=== PATIENT | female | born 1965 | race Caucasian/White ===

== ENCOUNTER 2016-12-05 13:31 | Inpatient (IN) | payer OTHER ==
[~2016-12-05] VITALS: Ht 172.7 cm; Wt 99.8 kg
--- NOTE | ~2016-12-05 | CO ---
Unit #: [id number] #: [id number] Patient: LEROY GORDILLO [id number] [address] [place], [place] [address] [id number] I MR#: [id number] NAME: LEROY GORDILLO. ROOM: 39300 Age: 51 Sex: F Admission Date: 12/05/2016 : 1965 Attending Physician: Chery Dejesus M.D. Primary Care Physician: Primary Care Physician No Consultation Date: 12/06/2016 CONSULTATION REPORT REASON FOR CONSULTATION Respiratory failure and COPD. HISTORY OF PRESENT ILLNESS A 51-year-old female, who has no medical history, on no medicines at home. Presents with shortness of breath. She currently has some shortness of breath, particularly during the hot months, but over the last one week, it worsened. She had wheezing, minimal sputum production. No hemoptysis, no chest pain, and no fever. In the emergency room, she was found to have hypercapnic hypoxemic respiratory failure. There was a question of congestive heart failure. She was treated with Lasix, Solu-Medrol, aspirin, and nebulized bronchodilators. Repeat blood gas was ordered, but she refused. Today, she feels somewhat better, but certainly was very short of breath, and she says "it scared me." Of note, CT PE protocol was negative. PAST MEDICAL HISTORY No medical problems. MEDICATIONS At home, none. ALLERGIES No known medical allergies. SOCIAL HISTORY She lives with her . She does not work. She used to work at [employer]. She denies any occupational exposures. She smokes a pack of cigarettes a day, some marijuana. Denies alcohol. FAMILY HISTORY Mother having lung cancer. REVIEW OF SYSTEMS No chest pain, palpitations, abdominal pain, melena, hematuria, dysuria, focal weakness, paresthesias, leg pain, swelling, documented fever, or chills. She does snore. She will wake up gasping and snoring. She does have daytime sleepiness and fatigue. She has had some mid back discomfort, which is made worse with palpation and improved with massage. PHYSICAL EXAMINATION GENERAL: Reveals a patient, who is in no acute distress, on the nasal cannula oxygen. VITAL SIGNS: Afebrile, pulse 84, respiratory rate is 20, blood pressure Unit #: [id number] #: [id number] Patient: LEROY GORDILLO 155/105, 5 feet 8 inches, 229 pounds, BMI is 34. HEENT: Pupils equal, round, and reactive to light. Sclerae anicteric. Head atraumatic. NECK: Supple. No supraclavicular or cervical adenopathy appreciated. Mucous membranes are moist. Mallampati class IV oropharynx. Dentition is poor. CHEST: Inspiratory squeaks, expiratory wheeze. Prolonged expiratory phase. Crackles at the bases. CARDIAC: Reveals distant heart tones. Regular rate and rhythm. No pathologic murmur, rub, or gallop. ABDOMEN: Soft and nontender. No hepatomegaly or rebound. EXTREMITIES: Reveal no clubbing or cyanosis. No significant edema. Calves are nontender. NEUROLOGIC: Grossly intact. No focal motor or sensory deficits. SKIN: Dry and warm. DIAGNOSTIC STUDIES LABORATORY RESULTS: Arterial blood gas; pH is 7.32, pCO2 of 56, pO2 of 46 on 4 L. Most recent pH is 7.31, pCO2 of 58, pO2 of 88, that was on mask ventilation. She currently only is on nasal cannula oxygen. Again, she refused repeat blood gas. BUN 22, creatinine 0.9. BNP 803. TSH is mildly low at 0.32. Cardiac enzymes negative. White blood cell count 8.8, hemoglobin 14.6, hematocrit is mildly elevated. Tox screen canceled. Urinalysis cancelled. I believe she left the ER against medical advice, but then came back. Urine culture canceled. IMAGING STUDIES: Chest x-ray fairly unremarkable. CT scan, some tree-in-bud abnormalities in right upper lobe, possible mild emphysematous changes, no lobar pneumonia, no PE. EKG; sinus tachycardia. IMPRESSION 1. Acute hypercapnic hypoxemic respiratory failure. 2. Chronic obstructive pulmonary disease, suspect some degree of bronchiolitis. 3. Likely obstructive sleep apnea, possible obesity hypoventilation syndrome. 4. Ongoing active tobacco use. 5. Possible congestive heart failure. PLAN Maximize pulmonary status with steroids, antibiotics, and nebulized bronchodilators. No smoking is a great need and this was discussed in detail. Room air oxygenation needs will be checked at discharge. Outpatient PFTs as well as nocturnal polysomnography. I have discussed the pathophysiology of sleep apnea including diagnostic process, therapeutic options including CPAP, she seems interested. Follow up echocardiogram. Thank you very much for allowing me to participate in the care of Ms. Gordillo. Dictated by... Gena Valencia/yfn TD: 12/07/2016 01:19 Unit #: [id number] #: [id number] Patient: LEROY GORDILLO JOB #: [id number] CONSULTATION REPORT Page 1 of 1 X Jeff Joyce MD CONSULTATION REPORT
--- NOTE | ~2016-12-05 | HP ---
Unit #: [id number] #: [id number] Patient: LEROY GORDILLO [id number] [address] [place], [place] [address] [id number] I MR#: [id number] NAME: LEROY GORDILLO ROOM: 47058 Age: 51 Sex: F Admission Date: 12/05/2016 : 1965 Attending Physician: Chery Dejesus M.D. HISTORY AND PHYSICAL CHIEF COMPLAINT Short of air. HISTORY OF PRESENT ILLNESS The patient is a 51-year-old female with no significant past medical history who presented to the emergency department for evaluation of the above. The patient states that she has had a three-day history of increasing shortness of breath and intermittently productive cough. She states that she has had chills and undocumented fever. She also reports chest pain as recently as yesterday. It is in the mid chest. She describes it as "pressure." She denies current chest pain. She has had paroxysmal nocturnal dyspnea, as well as dyspnea on exertion when walking across the room. She has had increasing lower extremity swelling. She denies any change in her weight. She denies orthopnea. She reports intermittent abdominal pain but none now. She has had three bouts of nonbloody emesis within the past 24 hours. She denies any diarrhea. Upon arrival in the emergency department, initial oxygen saturation was 76% on room air, pulse 109, respirations 22, blood pressure 136/94. Chest x-ray shows mild cardiac enlargement. BNP is 803. Initial arterial blood gas showed a pH of 7.327, PCO2 of 55.7, and PO2 of 46.7 on four liters. She is currently on BiPAP. She received Lasix 40 mg IV daily in the emergency department, as well as 324 mg of aspirin and 125 mg of Solu-Medrol. She is being admitted to [facility] for evaluation and further treatment. PAST MEDICAL HISTORY The patient denies hospitalizations. PAST SURGICAL HISTORY Surgery for ectopic . SOCIAL HISTORY The patient lives with her . She smokes a pack of cigarettes daily. She reports marijuana use. She denies alcohol use. FAMILY HISTORY Notable for her mother having lung cancer. Her dad had a pacemaker. ALLERGIES No known allergies. Unit #: [id number] #: [id number] Patient: LEROY GORDILLO HOME MEDICATIONS None. REVIEW OF SYSTEMS A complete review of systems is negative except as indicated in the HPI. The patient denies ever having a stress test and no cardiac catheterization. PHYSICAL EXAMINATION VITAL SIGNS: Temperature is 98, pulse 109, respirations 22, blood pressure 136/94, oxygen saturation 76% on room air. GENERAL: The patient is a female who is awake and alert on BiPAP. HEENT: Head is atraumatic. Mucous membranes are moist. NECK: Supple. Trachea is midline. CARDIOVASCULAR: Regular rate and rhythm. LUNGS: Scattered wheezes and crackles. Breathing is mildly labored. She is currently on BiPAP. ABDOMEN: Soft and nontender with bowel sounds present in all four quadrants. EXTREMITIES: With 1 to 2+ edema. NEUROLOGIC: The patient is awake and alert. She is oriented x3. She is moving all extremities. PSYCHIATRIC: Mood and affect are normal. Patient is cooperative. SKIN: Skin of examined areas is warm and dry. DIAGNOSTIC STUDIES LABORATORY: Arterial blood gas shows a pH of 7.327, PCO2 of 55.7, and PO2 of 46.7, on four liters. Complete blood count is essentially normal. Troponin is less than 0.05. Comprehensive metabolic panel notable for a glucose of 132, BUN and creatinine 28 and 1, respectively, albumin is 3.3. BNP is 803. IMAGING: Chest x-ray shows mild cardiac enlargement. CARDIOLOGY: EKG shows sinus tachycardia with a rate of 104 beats per minute. ASSESSMENT The patient is a 51-year-old female with: 1. Acute respiratory failure, hypoxic and hypercapnic. 2. New congestive heart failure. The patient received 40 mg of Lasix IV in the emergency department. 3. Likely chronic obstructive pulmonary disease with continued tobacco abuse. The patient received 125 mg of Solu-Medrol in the emergency department. 4. Chest pain. The patient has never had a stress test and never had a cardiac catheterization. PHYSICAL EXAMINATION 1. Admit to ICU. 2. N.p.o. except medications. 3. Bedrest. 4. Fall precautions. 5. Continue BiPAP at current settings (14/6 with an FIO2 of 50%). 6. Consult Chest Medicine regarding acute respiratory failure. 7. DuoNebs q.4 hours. 8. Solu-Medrol 80 mg IV q.12 hours. Unit #: [id number] #: [id number] Patient: LEROY GORDILLO 9. Mucinex [address] b.i.d. 10. CT of the chest, PE protocol. 11. Repeat ABG later this evening. 12. A 2D echo. 13. Strict I/Os. 14. Daily weights. 15. Serial cardiac enzymes. 16. Consult Dr. Vega regarding CHF. He has seen the patient and agrees to see her in consultation. 17. Fasting lipid panel. 18. TSH. 19. P.r.n. Zofran. 20. Protonix for GI prophylaxis since the patient will be on Solu-Medrol. 21. Urinalysis with culture and sensitivity. 22. Urine tox screen. 23. Repeat labs in the morning. 24. Additional workup and consultants based on above. Thirty-five (35) minutes critical care time spent in the care of this patient (4 o'clock to 4:35 p.m.). Dictated by Gena Galindo/barrera TD: 12/05/2016 19:31 JOB #: [id number] HISTORY AND PHYSICAL Page 1 of 1 X Chery Dejesus MD X HISTORY AND PHYSICAL
--- NOTE | ~2016-12-05 | EKG ---
PATIENT: LEROY GORDILLO UNIT #: [id number] Ventricular Rate: 104 BPM Atrial Rate: 104 BPM P-R Interval: 126 ms QRS Duration: 98 ms Q-T Interval: 352 ms QTC Calculation(Bezet): 462 ms P Eleanor: 47 degrees Calculated R Eleanor: -76 degrees Calculated T Eleanor: 48 degrees Diagnosis Line: Sinus tachycardia Diagnosis Line: Possible Left atrial enlargement Diagnosis Line: Incomplete right bundle branch block Diagnosis Line: Left anterior fascicular block Diagnosis Line: Cannot rule out Inferior infarct (masked by Diagnosis Line: fascicular block?) , age undetermined Diagnosis Line: Anterolateral infarct , age undetermined Diagnosis Line: Abnormal ECG Diagnosis Line: No previous ECGs available Diagnosis Line: Confirmed by SAM DESAI MD ([id number]) on Diagnosis Line: 12/06/2016 8:04:05 AM INTERPRETING MD: GISELLE MCELROY
--- NOTE | ~2016-12-05 | CO ---
Unit #: [id number] #: [id number] Patient: LEROY GORDILLO [id number] [address] [address] [id number] I MR#: [id number] NAME: LEROY GORDILLO. ROOM: 36683 Age: 51 Sex: F Admission Date: 12/05/2016 : 1965 Attending Physician: Chery Dejesus M.D. Primary Care Physician: Primary Care Physician No CONSULTATION REPORT REASON FOR CONSULTATION Shortness of air, possible CHF. HISTORY OF PRESENT ILLNESS The patient is a 51-year-old, female, who smokes one pack daily and has not followed with a physician in over 30 years, who presented to the emergency room with complaints of shortness of breath. She reports that she has had progressive shortness of breath and lower extremity swelling over the past several days. No reports of chest pain. The patient was noted to have O2 saturations in the 73 on room air in the triage room and was brought into the ER and had ABG drawn, which was abnormal showing a PO2 of 46 and was subsequently placed on BiPAP. PAST MEDICAL HISTORY 1. Probable untreated hypertension. 2. Possible obstructive sleep apnea. 3. Tobacco use. HOME MEDICATIONS None. ALLERGIES No known drug allergies. SOCIAL HISTORY She smokes one pack daily. FAMILY HISTORY Negative. REVIEW OF SYSTEMS Swelling and progressive shortness of air as discussed in the HPI. DIAGNOSTIC STUDIES LABORATORY RESULTS: Current labs and tests; ABG pH: 7.313, pCO2 of 58.3, PO2 of 88.6, and O2 saturation 81.7 (this is after patient has been placed on BiPAP) BNP is 803. Sodium 138, potassium 4.3, chloride 102, CO2 of 29, glucose 132, BUN 28, and creatinine 1.0. AST 26, ALT 30. Troponin less than 0.05 at 1431 hours. White blood cell 10.5, hemoglobin 15.2, hematocrit 46.7, and platelets are 261. PHYSICAL EXAMINATION VITAL SIGNS: Blood pressure 130/81, heart rate 91 and regular, Unit #: [id number] #: [id number] Patient: LEROY GORDILLO respirations 22 and regular, and O2 saturation 95% on BiPAP. GENERAL: The patient is well-developed, well-nourished, obese female, mild respiratory distress. HEENT: Head is normocephalic and atraumatic. There are no xanthelasmas. Oral mucosa is pink and moist. NECK: No JVD or carotid bruits. SPINE: No scoliosis. CARDIAC: Regular rate and rhythm without murmur, gallop, rub, or lift appreciated. PULMONARY: Decreased breath sounds bilaterally. No wheezes, rhonchi, or rales appreciated. ABDOMEN: Soft, nontender, and nondistended. Positive bowel sounds x4. The abdominal pulsation is not enlarged. EXTREMITIES: No clubbing or cyanosis. There is trace to 1+ edema. ASSESSMENT AND PLAN 1. Shortness of air, which may be multifactorial. 2. Acute hypoxic respiratory failure. 3. Tobacco use. 4. Obesity. 5. Probable obstructive sleep apnea. Ms. Gordillo's case was discussed with Dr. Vega, who has evaluated the patient. We will start Lasix 40 mg IV b.i.d. and check a 2D echo Doppler and also get a TSH in the morning. Dictated by... Carla Castaneda P.A.C. for S. Jesus Vega M.D. CMG/yfn TD: 12/06/2016 03:59 JOB #: [id number] CONSULTATION REPORT Page 1 of 1 X X CONSULTATION REPORT
--- NOTE | ~2016-12-05 | CR72 ---
[facility] A Service of [facility] RADIOLOGY TEXT RESULTS PATIENT: LEROY GORDILLO LOCATION: [facility] : [birth year] UNIT #: [id number] AGE: [address]: Chery Dejesus MD SEX: F ORDER DR: [id number] [facility] [address] [facility]. [place], [place] [address] [id number] I MR#: [id number] Acc #: [id number] NAME: LEROY GORDILLO. : 1965 SEX: F STUDY DATE/TIME: 12/05/2016 14:40 UNIT: [facility]OF ROOM: 57240 STUDY DESCRIPTION: CR Chest Single View Portable Attending Physician: Chery Dejesus M.D. Ordering Physician: Darren Gaming M.D. Primary Care Physician: Primary Care Physician No MEDICAL IMAGING REPORT This report is preliminary unless electronic signature is present EXAM Portable chest HISTORY Shortness of air for 3 days. FINDINGS Moderate cardiac enlargement. Pulmonary vascularity is normal. No airspace infiltrates or effusions. IMPRESSION No acute findings. Mild cardiac enlargement. Dictated by... Bassam Carlson M.D. THIS IS AN ELECTRONICALLY VERIFIED REPORT Bassam Carlson M.D. at 12/06/2016 3:26 PM DFL/psc TD: 12/06/2016 09:50 JOB #: [id number] MEDICAL IMAGING REPORT Page 1 of 1 COPY
--- NOTE | ~2016-12-05 | CT16 ---
[facility] A Service of [facility] RADIOLOGY TEXT RESULTS PATIENT: LEROY GORDILLO LOCATION: [facility] [id number] : [birth year] UNIT #: [id number] AGE: [address]: Chery Dejesus MD SEX: F ORDER DR: [id number] [facility] [address] [facility]. [place], [place] [address] [id number] I MR#: [id number] Acc #: [id number] NAME: LEROY GORDILLO. : 1965 SEX: F STUDY DATE/TIME: 12/05/2016 18:23 UNIT: [facility] ROOM: 47799 STUDY DESCRIPTION: CT Angio Chest for PE Attending Physician: Chery Dejesus M.D. Ordering Physician: Chery Dejesus M.D. Primary Care Physician: No Primary Care Physician MEDICAL IMAGING REPORT This report is preliminary unless electronic signature is present EXAM CT chest PE protocol. HISTORY Shortness of air, wheezing, chest tightness for 3 days. Lower extremity swelling. TECHNIQUE Axial images performed through the chest following IV contrast. Sagittal and coronal reconstructed images reviewed at a workstation. This CT exam was performed with one or more of the following radiation dose reduction techniques: automatic exposure control, adjustment of mA and/or kV according to patient size, and iterative reconstruction. FINDINGS Examination demonstrates subtle prominence of the interlobular septa with diffuse reticulonodular changes. This could be infectious or inflammatory in nature or represent interstitial edema. No airspace disease or consolidation. No effusions. Trachea and bronchi unremarkable. No evidence of pulmonary embolus. Mild cardiomegaly. Aorta unremarkable. Small amount of mediastinal lymphadenopathy. Upper abdomen remarkable for mild enlargement of adrenal glands, could represent adrenal hyperplasia. Kidneys unremarkable. Osseous structures thoracic inlet appear normal. IMPRESSION 1. No evidence of pulmonary embolus. 2. Mild diffuse reticulonodular infiltrates. This could be related to prior inflammatory disease, possibly infectious. Interstitial edema considered less likely. No focal airspace disease or consolidation. Mild cardiomegaly. Dictated by... [facility] A Service of [facility] RADIOLOGY TEXT RESULTS PATIENT: LEROY GORDILLO LOCATION: [facility] [id number] : [birth year] UNIT #: [id number] AGE: [address]: Chery Dejesus MD SEX: F ORDER DR: Quan Dee M.D. THIS IS AN ELECTRONICALLY VERIFIED REPORT Quan Dee M.D. at 12/07/2016 3:13 PM KELY/giselle TD: 12/06/2016 11:05 JOB #: [id number] MEDICAL IMAGING REPORT Page 1 of 1 COPY
[2016-12-05 14:15] LABS: BASOPHIL# 0.1 X10e3 (0-0.3); BASOPHIL% 0.5 % (0-2.5); EOSINOPHIL% 0.3 % (0.0-7.0); HEMATOCRIT 46.7 % (35.0-45.0); HEMOGLOBIN 15.2 gm/dL (12.0-16.0); LYMPHOCYTE# 1.9 X10e3 (1.0-3.5); LYMPHOCYTE% 18.4 % (17.0-45.0); MEAN CELL VOLUME 85.4 FL (83-96); MEAN CORPUSCULAR HEMOGLOBIN 27.8 PG (28-34); MEAN CORPUSCULAR HGB CONC 32.6 g/dL (30-36); MEAN PLATELET VOLUME 7.3 FL (6.5-11.5); MONOCYTE# 0.7 X10e3 (0-1.0); MONOCYTE% 6.4 % (3.0-12.0); NEUTROPHIL# 7.8 X10e3 (1.5-7.1); NEUTROPHIL% 74.4 % (40-75); PLATELET COUNT 261 X10e3 (140-420); RED BLOOD COUNT 5.47 X10e (3.90-5.30); RED CELL DISTRIBUTION WIDTH 17.3 % (11.0-15.5); WHITE BLOOD COUNT 10.5 X10e3 (4.0-10.5)
[2016-12-05 14:20] LABS: DIFF IND NO
[2016-12-05 14:25] LABS: ARTERIAL BLD GAS O2 SATURATION 71.6 % (90.0-100.0); ARTERIAL BLOOD GAS CARBOXY HB 17.6 %sat (0.0-9.0); ARTERIAL BLOOD GAS HCO3 29.1 mmol/L; ARTERIAL BLOOD GAS MET HB 0.6 %sat (0.0-2.0); ARTERIAL BLOOD GAS pH 7.327 (7.350-7.450)
[2016-12-05 14:26] LABS: ARTERIAL BLOOD GAS ALLEN TEST NORMAL; ARTERIAL BLOOD GAS ART SITE RIGHT RADIAL; ARTERIAL BLOOD GAS DELIVERY NASAL CANNULA; ARTERIAL BLOOD GAS PCO2 55.7 mmHg (35.0-45.0); ARTERIAL BLOOD GAS PO2 46.7 mmHg (80.0-100); ARTERIAL DRAW? YES
[2016-12-05 14:32] LABS: POC - CKMB 5.1 ng/mL (0.0-7.9); POC - TROPONIN <0.05 ng/mL (<=0.05)
[2016-12-05 14:48] LABS: ALBUMIN SERUM 3.3 g/dL (3.5-5.0); BILIRUBIN, DIRECT 0.1 mg/dL (0.0-0.2); BILIRUBIN,INDIRECT 0.2 mg/dL (0.0-0.9); BILIRUBIN,TOTAL 0.3 mg/dL (0.2-2.0); CALCIUM SERUM 8.6 mg/dL (8.4-10.2); GLOM FILT RATE Estimated 64.3 mL/min (>60); POTASSIUM 4.3 mmol/L (3.5-5.1); PROTEIN TOTAL SERUM 6.9 g/dL (6.0-8.3)
[2016-12-05 15:15] LABS: ARTERIAL BLD GAS O2 SATURATION 81.7 % (90.0-100.0); ARTERIAL BLOOD GAS CARBOXY HB 15.6 %sat (0.0-9.0); ARTERIAL BLOOD GAS HCO3 29.5 mmol/L; ARTERIAL BLOOD GAS MET HB 0.7 %sat (0.0-2.0); ARTERIAL BLOOD GAS PO2 88.6 mmHg (80.0-100); ARTERIAL BLOOD GAS pH 7.313 (7.350-7.450)
[2016-12-05 15:17] LABS: ARTERIAL BLOOD GAS ALLEN TEST NORMAL; ARTERIAL BLOOD GAS ART SITE RIGHT RADIAL; ARTERIAL BLOOD GAS DELIVERY BIPAP 14/6; ARTERIAL BLOOD GAS PCO2 58.3 mmHg (35.0-45.0); ARTERIAL DRAW? YES
[2016-12-05 18:15] LABS: POC - CKMB 4.8 ng/mL (0.0-7.9); POC - TROPONIN <0.05 ng/mL (<=0.05)
[2016-12-06 00:12] LABS: ARTERIAL BLOOD GAS CARBOXY HB 6.9 %sat (0.0-9.0); ARTERIAL BLOOD GAS HCO3 31.5 mmol/L; ARTERIAL BLOOD GAS MET HB 0.6 %sat (0.0-2.0); ARTERIAL BLOOD GAS pH 7.342 (7.350-7.450)
[2016-12-06 00:14] LABS: ARTERIAL BLOOD GAS ART SITE RIGHT BRACHIAL; ARTERIAL BLOOD GAS DELIVERY VENTURI MASK; ARTERIAL BLOOD GAS PCO2 58.2 mmHg (35.0-45.0); ARTERIAL BLOOD GAS PO2 69.2 mmHg (80.0-100); ARTERIAL DRAW? YES
[2016-12-06] MEDS ORDERED: NO MEDICATIONS (19:44)
[2016-12-09] MEDS ORDERED: PROAIR HFA8.5 GM INH (14:37)
[2016-12-09] MEDS ORDERED: COREG6.25 MG PO (14:38)
[2016-12-09] MEDS ORDERED: PREDNISONE (14:38)
[2016-12-09] MEDS ORDERED: NICOTINE TRANSD14 MG TOP (14:38)
[2016-12-09] MEDS ORDERED: PRINIVIL20 M1 PO (14:39)
[2016-12-09] MEDS ORDERED: ASPIRIN81 M2 PO (14:39)
[2016-12-09] MEDS ORDERED: LASIX PO (14:39)
[2016-12-09] MEDS ORDERED: NITROGLYCERIN0.4 MG (14:40)
[2016-12-09] MEDS ORDERED: VIBRAMYCIN100 M1 PO (14:40)
[2016-12-09] MEDS ORDERED: SYMBICORT INH (14:41)
== END 2016-12-05 21:50 | disposition home or self-care (01) | DRG 189 ==
LOC: CED 13:31 → CEDOF 17:09
PROVIDERS: Emergency Medicine; Family Medicine
PROC: B32TYZZ Computerized Tomography (CT Scan) of Left Pulmonary Artery using Other Contrast (ICD-10-PCS; principal; 2016-12-05)
PROC: B32SYZZ Computerized Tomography (CT Scan) of Right Pulmonary Artery using Other Contrast (ICD-10-PCS; 2016-12-05)
DX: J96.01 Acute respiratory failure with hypoxia (principal); J44.9 Chronic obstructive pulmonary disease, unspecified; E66.2 Morbid (severe) obesity with alveolar hypoventilation; I10 Essential (primary) hypertension; J96.02 Acute respiratory failure with hypercapnia; R07.9 Chest pain, unspecified; F17.210 Nicotine dependence, cigarettes, uncomplicated; Z68.33 Body mass index [BMI] 33.0-33.9, adult
CPT/HCPCS: 36600; 71010; 71275; 80048; 80076; 82553; 82803; 83880; 84443; 84484; 85025; 93005; 94640; 94660; 94760; 96374; 99291; J1940; J2930; Q9967